=== PATIENT | male | born 1980 | race Caucasian/White ===

== ENCOUNTER → 2023-11-04 09:58 | Outpatient (REF) | payer BC, SELFPAY | LOC: REG 09:58 | PROVIDERS: ATTENDING PHYSICIAN Internal Medicine | DX: H02.401 Unspecified ptosis of right eyelid (principal) | CPT/HCPCS: 36415 ==

== ENCOUNTER 2023-11-09 11:42 | Emergency (ER) | payer BC, SELFPAY ==
[2023-11-09 11:45] VITALS: BP 173/103
[2023-11-09 12:14] VITALS: BMI 33.0
--- NOTE | 2023-11-09 13:52 | ED.MUSCINJ ---
HPI-Injury
General
Chief Complaint: Soft Tissue Injury
Source: patient
Time Seen by Provider: 11/09/23 13:36
Travel History
Have you had any contact with someone who has COVID-19?: No
Do you have any symptoms of coronavirus? Fever > 100 degrees, chills, cough, shortness of breath, sore throat, loss of taste or smell, muscle aches, or headache?: No
History of Present Illness-Injury
Initial Injury comments:
43-year-old male with past medical history of hypertension presenting emergency department for evaluation after what he was kickboxing and lunged forward and felt a sudden sharp pain in his left calf and has had been having difficult time ambulating
since then. Patient states that at rest his pain is only a 2 but he is having a hard time plantar flexing his foot. No pain or swelling around the ankle. No other concerns at this time
Past History
Past History
ED Past Medical History: HTN
ED Past Surgical History: Orthopedic
Social History
Tobacco: Non-smoker
Alcohol: Occasional
Drug: None
Personal:
Living: with family
Employment: Employed
Review of Systems
Review of Systems
All Other Systems: ROS reviewed and negative except as documented in HPI and ROS
Phy Exam
Physical Exam
Physical Exam:
GENERAL: Alert , in no apparent distress
EYE: conjunctiva clear
Head: Normocephalic atraumatic
NECK: Supple,
ENT: mmm.
LUNGS: no acute respiratory distress
NEUROLOGICAL: Alert and oriented
SKIN: Warm and dry, skin intact.
MUSCULOSKELETAL: Left lower extremity: Soft tissue swelling of the mid left gastrocnemius with tenderness in this area. The calcaneal tendon is intact and without laxity. Easily palpable pedal pulse. Cap refill less than 2 seconds sensation is
grossly intact to light touch. Remainder of extremity is within normal limits.
PSYCH: Normal and appropriate interaction.
Scores
Heart Failure Risk
Heart Failure Risk Score: Not Applicable
Heart Score for Chest Pain Patients
STEMI patient?: Not applicable
Withdrawal Assessment of Alcohol
Withdrawal Assessment Completed?: Not applicable
Injury Course
Orders/Labs/Results
Orders:
Orders
11/09/23 13:52
Darrin Wrap Left-Treatment ONCE
Crutches-Treatment ONCE
MDM/Problems Addressed
Differential Diagnosis Includes:
Gastrocnemius or soleus muscle strain, muscle tear, Achilles tendon injury, no concern for DVT
MDM/Problems Addressed:
43-year-old male presenting emergency department for evaluation of left calf pain following injury while kickboxing. There is no deformity but there is soft tissue swelling. I suspect a gastrocnemius or soleus muscle strain to be the most likely
diagnosis. NSAIDs/Tylenol as needed. Will provide Darrin wrap compression. Information for orthopedics provided. Patient is otherwise stable for discharge home.
*Pulse Oximetry
Patient hypoxic: no
*Critical Care Note
Total Time (30-74mins, 75-104mins- exclusive of procedures): Not Applicable
ED Attending Note
-
Portions of this chart may have been created with voice recognition software.� Occasional wrong word or��sound alike� substitutions may have occurred due to the inherent limitations of voice recognition software.
Discharge Plan
Departure
Patient Disposition: Home (Routine Discharge)
Date of Disposition: 11/09/23
Time of Disposition: 13:52
Patient with high blood pressure during this ER visit?: Yes
Discharge Problem:
Injury of calf
Instructions: Lower Extremity Muscle Strain (DC)
Referrals:
Samuel Peterson MD [Family Provider] -
Priyank Garrett MD [Active] -
Stand Alone Forms: Return to Work
Interventions
Interventions:
*Risk Screen - Suicide Last Done: 11/09/23 12:11
*General Assessment Last Done: 11/09/23 12:11
*Neglect/Abuse Screening Last Done: 11/09/23 12:11
*ED COVID-19 Vaccine History Last Done: 11/09/23 11:45
*Nursing Disposition Last Done: 11/09/23 14:43
ED-Musculoskeletal Assessment Last Done: 11/09/23 12:12
ED-Skin Assessment Last Done: 11/09/23 12:12
Discharge Date and Time
Discharge Date/Time: 11/09/23 14:44
Print Language: TONGAN
[2023-11-09 14:22] VITALS: BP 137/100
== END 2023-11-09 14:44 | disposition home or self-care (01) ==
LOC: EMR 11:42
PROVIDERS: EMERGENCY PHYSICIAN Emergency Medicine; FAMILY PHYSICIAN Internal Medicine
DX: S89.92XA Unspecified injury of left lower leg, initial encounter (principal); R22.41 Localized swelling, mass and lump, right lower limb; X58.XXXA Exposure to other specified factors, initial encounter; Y93.71 Activity, boxing; R26.2 Difficulty in walking, not elsewhere classified; I10 Essential (primary) hypertension
CPT/HCPCS: 99282

== ENCOUNTER → 2024-02-20 14:55 | Outpatient (REF) | payer BC, SELFPAY | LOC: HWRAD 14:55 | PROVIDERS: ATTENDING PHYSICIAN Psychiatry & Neurology Neurology; FAMILY PHYSICIAN Internal Medicine; REFERRING PHYSICIAN Psychiatry & Neurology Neurology | DX: G70.00 Myasthenia gravis without (acute) exacerbation (principal) | CPT/HCPCS: 71250 ==